=== PATIENT | male | born 1990 | race Caucasian/White ===

== ENCOUNTER 2016-06-16 04:30 | Emergency (ER) | payer OTHER ==
[2016-06-16 04:40] VITALS: BP 115/63; PULSE 56; RESP 18; TEMP 97.7; O2SAT 98
--- NOTE | 2016-06-16 05:23 | EDPHY ---
H & P Stated Complaint: STILL HAS AN ERECTION AFTER 5 HRS Time Seen by Provider: 06/16/16 04:59 HPI/ROS: HPI The patient presents with concern for priapism. He and his girlfriend were having sex about 5 hours ago and since then he is had an erection which is mild , seems to be more on the right side of his penis, and has been improving. He has no prior history of similar. He did have an accident while skiing about a week ago and has had diffuse muscle aches and pains. He does have a history of paroxysmal atrial fibrillation and is on metoprolol and baby aspirin. He has not had any recent prolonged episodes of atrial fibrillation. REVIEW OF SYSTEMS Constitutional: No fever, no chills. Eyes: No discharge. ENT: No sore throat. Cardiovascular: No chest pain, no palpitations. Respiratory: No cough, no shortness of breath. Gastrointestinal: No abdominal pain, no vomiting. Genitourinary: No hematuria. Musculoskeletal: No back pain. Skin: No rashes. Neurological: No headache. PMHx: Paroxysmal atrial fibrillation Soc Hx: Denies any drug or alcohol use today No family history of clotting disorder. PHYSICAL General Appearance: Alert, no distress Eyes: Pupils equal and round no pallor or injection ENT, Mouth: Mucous membranes moist Respiratory: There are no retractions, lungs are clear to auscultation Cardiovascular: Regular rate and rhythm Gastrointestinal: Abdomen is soft and non-tender, no masses, bowel sounds normal : penis is flaccid, nontender, no testicular tenderness or abnormality Neurological: A&O, moves all extremities Skin: Warm and dry, no rashes Musculoskeletal: Neck is supple non tender Extremities: symmetrical, full range of motion Psychiatric: Patient is oriented X 3, there is no agitation Source: Patient Exam Limitations: No limitations - Personal History Current Tetanus/Diphtheria Vaccine: Yes Current Tetanus Diphtheria and Acellular Pertussis (TDAP): Yes - Medical/Surgical History Hx Asthma: No Hx Chronic Respiratory Disease: No Hx Diabetes: No Hx Cardiac Disease: Yes Hx Renal Disease: No Hx Cirrhosis: No Hx Alcoholism: No Hx HIV/AIDS: No Hx Splenectomy or Spleen Trauma: No Other PMH: paroxysmal atrial fibrillation, APPY - Social History Smoking Status: Never smoked Constitutional: Initial Vital Signs Temperature (C) 36.5 C 06/16/16 04:38 Heart Rate 56 L 06/16/16 04:38 Respiratory Rate 18 06/16/16 04:38 Blood Pressure 115/63 06/16/16 04:38 O2 Sat (%) 98 06/16/16 04:38 O2 Delivery Mode Room Air Allergies/Adverse Reactions: pollen extracts Allergy (Verified 06/16/16 04:39) Home Medications: Medication Instructions Recorded Aspirin [Aspirin 81mg (*)] 81 mg PO DAILY 03/24/15 Metoprolol Succinate Xr [Toprol Xl 25 mg PO DAILY 03/24/15 25 mg (*)] Medical Decision Making Differential Diagnosis: This is a 26-year-old male with recent ski accident who presents with prolonged erection tonight, now resolved. He has a normal exam. I have offered him an ultrasound, however he declines. Differential diagnosis includes a priapism, penile injury, less likely penile fracture, less likely testicular torsion. I have given him information for Urology follow-up. We have discussed what to do if this happens again, he is to return to the emergency room quickly. He would like to wait and see if his symptoms return. Departure - Departure Disposition: Home, Routine, Self-Care Clinical Impression: Priapism, unspecified Condition: Good Instructions: Priapism (ED) Additional Instructions: Please come back to the emergency room if you experience an erection lasting for more than 1 hour. I have given you the information for the urologist. You can call to schedule an appointment with him as well. Referrals: Oswald Patel MD [Medical Doctor] - As per Instructions
== END 2016-06-16 05:32 | disposition home or self-care (01) ==
DX: N48.30 Priapism, unspecified (principal); Z79.82 Long term (current) use of aspirin